=== PATIENT | female | born 1985 | race Caucasian/White ===

== ENCOUNTER 2017-10-07 19:25 | Emergency (ER) | payer OTHER ==
--- NOTE | 2017-10-07 19:30 | PDOC ---
Rapid Medical Evaluation Chief Complaint: Vaginal Bleeding Time Seen by Provider: 10/07/17 19:28 Medical Evaluation: Allergies Allergy/AdvReac Type Severity Reaction Status Date / Time No Known Allergies Allergy Verified 08/19/15 06:12 10/07/17 19:28 I have performed a brief in-person evaluation of this patient. The patient presents with a chief complain of:vag bleed at ~1700hrs today Was seen at the clinic yesterday to obtain preg test. Pt tested Positive LMP 09/01/2017 Pertinent physical exam findings:L/S ctab, ABD NT/ND/ No pain on palp I have ordered the following: cbc,cmp,ua,beta quant,TS,transvaginal US The patient will proceed to the ED for further evaluation.
[2017-10-07 19:32] VITALS: BP 130/73; PULSE 69; TEMP 98.5; BMI 24.9
[2017-10-07 20:13] LABS: BASOPHIL 0.5 % (0-2.0); EOSINOPHIL 0.8 % (0-4.5); MCH 29.2 pg (25.7-33.7); MCHC 34.5 g/dl (32.0-36.0); MEAN CELL VOLUME 84.6 fl (80-96); MEAN PLT VOLUME 8.7 fl (7.5-11.1); NEUTROPHILS 62.1 % (42.8-82.8); PLATELET COUNT 293 K/MM3 (134-434); RDW 12.7 % (11.6-15.6); WHITE BLOOD COUNT 6.9 K/mm3 (4.0-10.0)
[2017-10-07 20:36] LABS: URINE APPEARANCE SLCLOUDY; URINE BILIRUBIN NEGATIVE (NEGATIVE); URINE BLOOD 3+ (NEGATIVE); URINE COLOR YELLOW; URINE GLUCOSE (UA) NEGATIVE (NEGATIVE); URINE KETONE NEGATIVE (NEGATIVE); URINE LEUK ESTERASE NEGATIVE (NEGATIVE); URINE NITRITE NEGATIVE (NEGATIVE); URINE PROTEIN NEGATIVE (NEGATIVE); URINE UROBILINOGEN NEGATIVE mg/dL (0.2-1.0)
[2017-10-07 20:48] LABS: ALBUMIN 3.8 g/dl (3.4-5.0); ANION GAP 4 (8-16); CALCIUM 8.7 mg/dL (8.5-10.1); CO2 29 mmol/L (21-32); CREATININE 0.7 mg/dL (0.55-1.02); GLUCOSE,RANDOM 96 mg/dL (74-106); SGOT/AST 10 U/L (15-37); SGPT/ALT 14 U/L (12-78)
[2017-10-07 20:49] LABS: ALK PHOS 75 U/L (45-117); BILIRUBIN,TOTAL 0.2 mg/dL (0.2-1.0); TOT PROT 7.6 g/dl (6.4-8.2)
--- NOTE | 2017-10-07 22:28 | PDOC ---
History of Present Illness - General Chief Complaint: Vaginal Bleeding Stated Complaint: VAGINAL BLEEDING (5WKS ) Time Seen by Provider: 10/07/17 19:28 - History of Present Illness Initial Comments: 10/07/17 22:52 31 yo LMP 09/01/2017 a who presents with vaginal spotting. Patient reports new confirmed at outside clinic and complains of new onset vaginal spotting this evening at aprox 1700. Denies N/V, fevers/chills, abdominal pain, dysuria, diarrhea/constipation, BPR, back pain, flank pain, hematuria, lightheadedness, chest pain, SOB. Does not follow with Cardroom Supervisor. Past History - Past Medical History Allergies/Adverse Reactions: Allergies Allergy/AdvReac Type Severity Reaction Status Date / Time No Known Allergies Allergy Verified 10/07/17 19:32 Home Medications: Ambulatory Orders Vit/Iron Fumarate/FA [ Tablet] 1 each PO DAILY 02/02/15 Ibuprofen [Motrin -] 400 mg PO QID #28 tablet 08/20/15 Asthma: No Cancer: No Cardiac Disorders: No COPD: No Diabetes: No HTN: No Seizures: No Thyroid Disease: No - Reproductive History (#): 2 Para: 1 - Suicide/Smoking/Psychosocial Hx Smoking History: Never smoked Have you smoked in the past 12 months: No Hx Alcohol Use: No Drug/Substance Use Hx: No Substance Use Type: None Hx Substance Use Treatment: No Review of Systems - Review of Systems Comments:: 10/07/17 22:27 GENERAL/CONSTITUTIONAL: No fever or chills. No weakness. HEAD, EYES, EARS, NOSE AND THROAT: No change in vision. No ear pain or discharge. No sore throat.- CARDIOVASCULAR: No chest pain or shortness of breath RESPIRATORY: No cough, wheezing, or hemoptysis. GASTROINTESTINAL: No nausea, vomiting, diarrhea or constipation. GENITOURINARY: Vaginal bleed. No dysuria, frequency, or change in urination. MUSCULOSKELETAL: No joint or muscle swelling or pain. No neck or back pain. SKIN: No rash NEUROLOGIC: No headache, vertigo, loss of consciousness, or change in strength/ sensation. ENDOCRINE: No increased thirst. No abnormal weight change HEMATOLOGIC/LYMPHATIC: No anemia, easy bleeding, or history of blood clots. ALLERGIC/IMMUNOLOGIC: No hives or skin allergy. *Physical Exam - Vital Signs Last Vital Signs Temp Pulse Resp BP Pulse Ox 98.5 F 69 18 130/73 100 10/07/17 19:26 10/07/17 19:26 10/07/17 19:26 10/07/17 19:26 10/07/17 19:26 - Physical Exam Comments: 10/07/17 22:27 GENERAL: Awake, alert, and fully oriented, in no acute distress HEAD: No signs of trauma, normocephalic, atraumatic EYES: PERRLA, EOMI, sclera anicteric, conjunctiva clear ENT: Hearing grossly normal, nares patent, oropharynx clear without exudates. Moist mucosa NECK: Normal ROM, supple, no lymphadenopathy, JVD, or masses LUNGS: No distress, speaks full sentences, clear to auscultation bilaterally HEART: Regular rate and rhythm, normal S1 and S2, no murmurs, rubs or gallops, peripheral pulses normal and equal bilaterally. ABDOMEN: Soft, nontender, normoactive bowel sounds. No guarding, no rebound. No masses : Rabbler Nirvannie present. Normal appearing external genitalia. Active bleeding within vagina. Cervical os appears to be closed, although slightly diffcult to visualize d/t active bleeding. EXTREMITIES : Normal inspection, Normal range of motion, no edema. No clubbing or cyanosis. SKIN: Warm, Dry, normal turgor, no rashes or lesions noted. ED Treatment Course - LABORATORY CBC & Chemistry Diagram: 10/07/17 19:39 10/07/17 19:39 - ADDITIONAL ORDERS Additional order review: Laboratory Results 10/07/17 10/07/17 10/07/17 19:39 19:39 19:39 Sodium 137 Potassium 4.6 D Chloride 104 Carbon Dioxide 29 D Anion Gap 4 L BUN 12 D Creatinine 0.7 D Creat Clearance w eGFR > 60 Random Glucose 96 Calcium 8.7 Total Bilirubin 0.2 AST 10 L D ALT 14 D Alkaline Phosphatase 75 D Total Protein 7.6 Albumin 3.8 Beta HCG, Quant 47.0 Urine Color Urine Appearance Urine pH Ur Specific Lindstrom Urine Protein Urine Glucose (UA) Urine Ketones Urine Blood Urine Nitrite Urine Bilirubin Urine Urobilinogen Blood Type O POSITIVE Antibody Screen Negative 10/07/17 19:34 Sodium Potassium Chloride Carbon Dioxide Anion Gap BUN Creatinine Creat Clearance w eGFR Random Glucose Calcium Total Bilirubin AST ALT Alkaline Phosphatase Total Protein Albumin Beta HCG, Quant Urine Color Yellow Urine Appearance Slcloudy Urine pH 5.0 D Ur Specific Lindstrom 1.026 Urine Protein Negative Urine Glucose (UA) Negative Urine Ketones Negative Urine Blood 3+ H Urine Nitrite Negative Urine Bilirubin Negative Urine Urobilinogen Negative Blood Type Antibody Screen 10/07/17 19:39 RBC 4.27 MCV 84.6 MCHC 34.5 RDW 12.7 MPV 8.7 Neutrophils % 62.1 D Lymphocytes % 30.1 D Monocytes % 6.5 Eosinophils % 0.8 D Basophils % 0.5 D Medical Decision Making - Medical Decision Making 10/07/17 23:04 31 yo LMP 09/01/2017 a who presents with vaginal spotting. Patient reports new confirmed at outside clinic and complains of new onset vaginal spotting this evening at aprox 1700. Denies trauma to abdomen. Denies N/ V, fevers/chills, abdominal pain, vaginal pain ,dysuria, diarrhea/constipation, BPR, back pain, flank pain, hematuria, lightheadedness, chest pain, SOB. Does not follow with Cardroom Supervisor. Pelvic exam with active bleding in vagina. Cervical os closed. Abdominal exam benign and HDS. Will evaluate for ectopic vs. . ED Course: CBC, CMP, HCG, 10/07/17 23:04 CBC/CMP: Unremarkable HC.0 10/07/17 23:11 Transvaginal U/S: No visible intrauterine gestation. 10/07/17 23:47 Patient advised to come back to ED in two days for repeat BHCG and possibly repeat U/S. *DC/Admit/Observation/Transfer Diagnosis at time of Disposition: Vaginal bleeding affecting early - Discharge Dispostion Disposition: HOME Condition at time of disposition: Stable Admit: No - Referrals - Patient Instructions Printed Discharge Instructions: DI for Vaginal Bleeding During Additional Instructions: Please return to the emergency department with any new or worsening symptoms or concerns. Please return to the emergency department within 48 hours for repeat testing. - Post Discharge Activity - Attestations Physician Attestion: 10/07/17 23:50 I attest to the documentation provided in this note.
[2017-10-07 22:45] LABS: URINE LEUK ESTERASE Negative (NEGATIVE)
[2017-10-07] MEDS ORDERED: ACETAMINOPHEN 500 MG TABLET (FP) PO ONE (23:00)
[2017-10-07] MEDS ORDERED: ACETAMINOPHEN 325 MG TABLET (FP) ONE (23:03)
--- NOTE | 2017-10-08 00:29 | PDOC ---
Attending Attestation - Resident Resident Name: Juan A Taylor - ED Attending Attestation I have performed the following: I have examined & evaluated the patient, The case was reviewed & discussed with the resident, I agree w/resident's findings & plan, Exceptions are as noted - HPI HPI: 10/08/17 00:26 31-year-old female, 3 para 0, at 5 weeks gestation by LMP presents to the ER with mild vaginal spotting. Patient denies fever/chills/nausea/vomiting/ dysuria. - Physicial Exam PE: 10/08/17 00:27 Patient is awake and alert, afebrile, hemodynamically stable. sft, nd, nt rrr cta No external lesions, small amount of bleeding noted in the vaginal vault, os closed: as per Dr. Taylor - Medical Decision Making 10/08/17 00:28 Patient is a 31-year-old female, who presents to the ER with vaginal bleeding. Beta-hCG is noted to be 47. It is significantly below the threshold limit. Transvaginal sound shows thickened endometrium only. Differential diagnoses includes early IUP versus ectopic versus threatened AB. We'll advise patient to return in 48 hours for repeat beta-hCG. Will provide ectopic precautions. Will discharge.
== END 2017-10-08 00:07 | disposition home or self-care (01) ==
LOC: JER 19:25
DX: O26.891 Other specified pregnancy related conditions, first trimester (principal); Z3A.01 Less than 8 weeks gestation of pregnancy; N93.9 Abnormal uterine and vaginal bleeding, unspecified
CPT/HCPCS: 36415; 76817-TC; 80053; 81003; 81015; 84702; 85025; 86850; 86900; 86901; 99282-25

== ENCOUNTER 2017-10-20 20:36 | Emergency (ER) | payer OTHER ==
[2017-10-20 20:40] VITALS: TEMP 97.9; BMI 24.0
--- NOTE | 2017-10-20 20:42 | PDOC ---
Rapid Medical Evaluation Chief Complaint: Vaginal Bleeding Time Seen by Provider: 10/20/17 20:41 Medical Evaluation: Allergies Allergy/AdvReac Type Severity Reaction Status Date / Time No Known Allergies Allergy Verified 10/20/17 20:40 Vital Signs Temp Pulse Resp BP Pulse Ox 97.9 F 88 16 140/78 100 10/20/17 20:38 10/20/17 20:38 10/20/17 20:38 10/20/17 20:38 10/20/17 20:38 10/20/17 20:41 I have performed a brief in-person evaluation of this patient. The patient presents with a chief complaint of: Abdominal Pain w/ Vaginal bleeding. Pertinent physical exam findings: Lower abdominal pain I have ordered the following: cbc, cmp, type screen, Beta- HCG, Urinalysis, Trans vaginal US The patient will proceed to the ED for further evaluation.
[2017-10-20 21:18] LABS: BASO % 0.5 % (0-2.0); EOS # 0.1 # (0-4.5); EOS % 1.1 % (0-4.5); LYMPH # 2.2 (8-40); MCH 28.5 pg (25.7-33.7); MCHC 33.8 g/dl (32.0-36.0); MEAN CELL VOLUME 84.4 fl (80-96); MEAN PLT VOLUME 9.2 fl (7.5-11.1); MONO # 0.4 # (3.8-10.2); NEUT # 3.6 # (42.8-82.8); NEUT % 57.2 % (42.8-82.8); PLATELET COUNT 267 K/MM3 (134-434); RDW 12.4 % (11.6-15.6); WHITE BLOOD COUNT 6.3 K/mm3 (4.0-10.0)
[2017-10-20 21:52] LABS: URINE APPEARANCE CLEAR; URINE BILIRUBIN NEGATIVE (NEGATIVE); URINE BLOOD 1+ (NEGATIVE); URINE COLOR YELLOW; URINE GLUCOSE (UA) NEGATIVE (NEGATIVE); URINE KETONE NEGATIVE (NEGATIVE); URINE LEUK ESTERASE NEGATIVE (NEGATIVE); URINE NITRITE NEGATIVE (NEGATIVE); URINE PROTEIN NEGATIVE (NEGATIVE); URINE UROBILINOGEN NEGATIVE mg/dL (0.2-1.0)
[2017-10-20 21:57] LABS: URINE MUCUS RARE; URINE RBC 3 /hpf (0-3); URINE WBC 1 /hpf (3-5)
[2017-10-20 22:06] LABS: ALBUMIN 3.7 g/dl (3.4-5.0); ANION GAP 5 (8-16); BILIRUBIN,TOTAL 0.2 mg/dL (0.2-1.0); CALCIUM 8.6 mg/dL (8.5-10.1); CO2 30 mmol/L (21-32); CREATININE 0.6 mg/dL (0.55-1.02); GLUCOSE,RANDOM 86 mg/dL (74-106); SGOT/AST 14 U/L (15-37); SGPT/ALT 18 U/L (12-78)
[2017-10-20 22:09] LABS: ALK PHOS 74 U/L (45-117)
--- NOTE | 2017-10-20 23:24 | PDOC ---
Attending Attestation - HPI HPI: 10/20/17 23:42 The patient is a 31 year old female with a past medical history of complaining of abdominal pain and vaginal bleeding. She states that she saw her OBGYN one week ago (10/13/17) and her beta HCG was 89.6. Her OBGYN informed her that her was unlikely viable and that she should come to the ED if she experienced any vaginal bleeding. LMP 09/06/17. <Brain Doyle - Last Filed: 10/21/17 00:15> - Resident Resident Name: Derek Lindsay - ED Attending Attestation I have performed the following: I have examined & evaluated the patient, The case was reviewed & discussed with the resident, I agree w/resident's findings & plan, Exceptions are as noted - Physicial Exam PE: 10/25/17 19:21 *Physical Exam General Appearance: Yes: Appropriately Dressed. No: Apparent Distress, Intoxicated HEENT: positive: EOMI, HARLEY, Normal ENT Inspection, Normal Voice, TMs Normal, Pharynx Normal. negative: Pale Conjunctivae, Photophobia, Scleral Icterus (R), Scleral Icterus (L) Neck: positive: Trachea midline, Normal Thyroid, Supple. negative: Tender, Rigid, Carotid bruit, Stridor, Lymphadenopathy (R), Lymphadenopathy (L), Thyromegaly Respiratory/Chest: positive: Lungs Clear, Normal Breath Sounds. negative: Chest Tender, Respiratory Distress, Accessory Muscle Use, Labored Respiration, RES, Crackles, Rales, Rhonchi, Stridor, Wheezing, Dullness Cardiovascular: positive: Regular Rhythm, Regular Rate, S1, S2. negative: Edema , JVD, Murmur, Bradycardia, Tachycardia Vascular Pulses: Dorsalis-Pedis (R): 2+, Doralis-Pedis (L): 2+ Gastrointestinal/Abdominal: positive: Normal Bowel Sounds, Flat, Soft. negative : Tender, Organomegaly, Pulsatile Mass, Increased Bowel Sounds, Decreased BS, Distended, Guarding, Rebound, Hernia, Hepatomegaly, Spleenomegaly Lymphatic: negative: Adenopathy, Tenderness Musculoskeletal: positive: Normal Inspection. negative: CVA Tenderness, Decreased Range of Motion Extremity: positive: Normal Capillary Refill, Normal Inspection, Normal Range of Motion, Pelvis Stable. negative: Tender, Pedal Edema, Swelling, Erythema Integumentary: positive: Normal Color, Dry, Warm. 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 negative: EOM Palsy, Facial Droop, Sensory Deficit - Medical Decision Making 10/25/17 19:22 patient was treated and released <Raul Redding - Last Filed: 10/25/17 19:22>
[2017-10-20 23:43] LABS: URINE LEUK ESTERASE Negative (NEGATIVE)
--- NOTE | 2017-10-21 00:22 | PDOC ---
History of Present Illness - General Chief Complaint: Vaginal Bleeding Stated Complaint: 7 WEEKS PREG,VAG. BLEEDING Time Seen by Provider: 10/20/17 20:41 History Source: Patient Exam Limitations: No Limitations - History of Present Illness Initial Comments: 10/21/17 00:15 31 yo LMP 09/06/2017 a 6w3d who presents with mild abdominal pain and vaginal spotting. Patient reports potentially nonviable pregnancies based on slow-increasing beta-HCG levels done at outside clinic on October 10 (54.7) and October 13 (84.6) Denies N/V, fevers/chills, abdominal pain, vaginal pain ,dysuria, diarrhea/ constipation, BPR, back pain, flank pain, hematuria, lightheadedness, chest pain , SOB. Past History - Past Medical History Allergies/Adverse Reactions: Allergies Allergy/AdvReac Type Severity Reaction Status Date / Time No Known Allergies Allergy Verified 10/20/17 20:40 Home Medications: Ambulatory Orders Vit/Iron Fum/Folic AC [ Tablet] 1 each PO DAILY 02/02/15 Asthma: No Cancer: No Cardiac Disorders: No COPD: No Diabetes: No HTN: No Seizures: No Thyroid Disease: No Other medical history: DENIES MEDICAL HX - Reproductive History (#): 2 Para: 1 - Suicide/Smoking/Psychosocial Hx Smoking History: Never smoked Have you smoked in the past 12 months: No Hx Alcohol Use: No Drug/Substance Use Hx: No Substance Use Type: None Hx Substance Use Treatment: No Review of Systems - Review of Systems Constitutional: No: Symptoms Reported HEENTM: No: Symptoms Reported Respiratory: No: Symptoms reported Cardiac (ROS): No: Symptoms Reported ABD/GI: Yes: See HPI : No: Symptoms Reported Musculoskeletal: No: Symptoms Reported Integumentary: No: Symptoms Reported Neurological: No: Symptoms reported *Physical Exam - Vital Signs Last Vital Signs Temp Pulse Resp BP Pulse Ox 97.9 F 88 16 140/78 100 10/20/17 20:38 10/20/17 20:38 10/20/17 20:38 10/20/17 20:38 10/20/17 20:38 - Physical Exam General Appearance: Yes: Nourished, Appropriately Dressed. No: Apparent Distress HEENT: positive: EOMI, HARLEY, Normal ENT Inspection Neck: negative: Tender Respiratory/Chest: positive: Chest Tender, Lungs Clear, Normal Breath Sounds Cardiovascular: positive: Regular Rhythm, Regular Rate, S1, S2 Gastrointestinal/Abdominal: positive: Normal Bowel Sounds, Flat, Soft. 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, Fully Oriented, Alert, Normal Mood/ Affect, Normal Response, Motor Strength 03/04 ED Treatment Course - LABORATORY CBC & Chemistry Diagram: 10/20/17 20:48 10/20/17 20:48 - ADDITIONAL ORDERS Additional order review: Laboratory Results 10/20/17 10/20/17 20:48 20:48 Sodium 141 Potassium 3.9 Chloride 106 Carbon Dioxide 30 Anion Gap 5 L BUN 12 Creatinine 0.6 Creat Clearance w eGFR > 60 Random Glucose 86 Calcium 8.6 Total Bilirubin 0.2 AST 14 L D ALT 18 D Alkaline Phosphatase 74 Total Protein 7.0 Albumin 3.7 Beta HCG, Quant 81.6 Urine Color Yellow Urine Appearance Clear Urine pH 6.0 Ur Specific [place]att 1.020 Urine Protein Negative Urine Glucose (UA) Negative Urine Ketones Negative Urine Blood 1+ H Urine Nitrite Negative Urine Bilirubin Negative Urine Urobilinogen Negative Ur Leukocyte Esterase Negative Urine WBC (Auto) 1 Urine RBC (Auto) 3 Ur Epithelial Cells Rare Urine Mucus Rare 10/20/17 20:48 RBC 4.14 MCV 84.4 MCHC 33.8 RDW 12.4 MPV 9.2 Neutrophils % 57.2 Lymphocytes % 34.3 Monocytes % 6.9 Eosinophils % 1.1 Basophils % 0.5 Medical Decision Making - Medical Decision Making 10/21/17 01:51 31 yo LMP 09/06/2017 a 6w3d who presents with mild abdominal pain and vaginal spotting. TVUS: No intrauterine gestational sac identified. Please correlate clinically for recent miscarriage. Cannot exclude a nonvisualized ectopic . Continued close clinical follow-up is warranted. 10/21/17 01:51 CBC, CMP, UA all WNL Beta HC.6. Lower number than on october 13. This is likely a complete . Patient dicharged with obgyn follow up. *DC/Admit/Observation/Transfer Diagnosis at time of Disposition: Complete - Discharge Dispostion Disposition: HOME Condition at time of disposition: Fair Admit: No - Referrals Referrals: Munir Carpio MD [Primary Care Provider] - - Patient Instructions Printed Discharge Instructions: Dealing With Miscarriage, DI for Miscarriage Additional Instructions: Please follow up with OBGYN KAYLEY Please come back to Emergency Department for any new, worsening or concerning symptoms. - Post Discharge Activity
[2017-10-21 01:17] VITALS: BP 120/74; PULSE 76
== END 2017-10-21 01:15 | disposition home or self-care (01) ==
LOC: JER 20:36
DX: O03.9 Complete or unspecified spontaneous abortion without complication (principal); Z3A.01 Less than 8 weeks gestation of pregnancy
CPT/HCPCS: 36415; 76817-TC; 80053; 81003; 81015; 84702; 85025; 86850; 86900; 86901; 99281-25

== ENCOUNTER 2018-03-01 18:15 | Emergency (ER) | payer OTHER ==
--- NOTE | 2018-03-01 18:16 | PDOC ---
Rapid Medical Evaluation Time Seen by Provider: 03/01/18 18:16 Medical Evaluation: Allergies Allergy/AdvReac Type Severity Reaction Status Date / Time No Known Allergies Allergy Verified 10/20/17 20:40 03/01/18 18:16 Healthy 32 year old female presents with who had HIV test at outside hospital last week which returned positive. Family believe results were in error and would like to repeat testing. Feeling well, no complaints. -HIV testing -To FT for further evaluation
[2018-03-01 18:21] VITALS: BP 126/81; PULSE 88; TEMP 98.1; BMI 24.9
--- NOTE | 2018-03-01 19:14 | PDOC ---
History of Present Illness - General Chief Complaint: HIV Testing Stated Complaint: STD EVALUATION Time Seen by Provider: 03/01/18 18:16 - History of Present Illness Initial Comments: 03/01/18 19:12 CHIEF COMPLAINT: HIV testing HISTORY OF PRESENT ILLNESS: 32 yo F with no PMH presents to fast track requesting HIV test. Patient's was recently called by outside hospital with positive HIV results, but patient reports that she also saw her doctor last week and had a negative HIV test. Patient and both request HIV testing to confirm results. Patient and both report that they are completely asymptomatic. PAST MEDICAL HISTORY: Denies past medical history FAMILY HISTORY: Denies SOCIAL HISTORY: Denies tobacco, alcohol, illicit drug use. SURGICAL HISTORY: Denies ALLERGIES: No known drug allergies REVIEW OF SYSTEMS negative - see HPI PHYSICAL EXAM General Appearance: Well-appearing, appropriately dressed. No apparent distress. HEENT: EOMI, PERRLA. No conjunctival pallor. No photophobia, scleral icterus. Respiratory/Chest: Lungs CTAB. Cardiovascular: RRR. S1, S2. Gastrointestinal/Abdominal: Normal bowel sounds. Abdomen soft, non-distended. No tenderness or rebound tenderness. No organomegaly, pulsatile mass, guarding , hernia, hepatomegaly, splenomegaly. Musculoskeletal/Extremities: Normal inspection. FROM of all extremities, normal capillary refill. Pelvis Stable. No CVA tenderness. No tenderness to extremities, pedal edema, swelling, erythema or deformity. Integumentary: Appropriate color, dry, warm. 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 Fully oriented, alert. Appropriate mood/affect. Motor strength 5/5. No appreciable EOM palsy, facial droop or sensory deficit. Past History - Past Medical History Allergies/Adverse Reactions: Allergies Allergy/AdvReac Type Severity Reaction Status Date / Time No Known Allergies Allergy Verified 03/01/18 18:17 Home Medications: Ambulatory Orders NK [No Known Home Medication] 03/01/18 Asthma: No Cancer: No Cardiac Disorders: No COPD: No Diabetes: No HTN: No Seizures: No Thyroid Disease: No - Reproductive History (#): 2 Para: 1 - Suicide/Smoking/Psychosocial Hx Smoking History: Never smoked Have you smoked in the past 12 months: No Information on smoking cessation initiated: No Hx Alcohol Use: No Drug/Substance Use Hx: No Substance Use Type: None Hx Substance Use Treatment: No *Physical Exam - Vital Signs Last Vital Signs Temp Pulse Resp BP Pulse Ox 98.1 F 88 14 126/81 100 03/01/18 18:17 03/01/18 18:17 03/01/18 18:17 03/01/18 18:17 03/01/18 18:17 Medical Decision Making - Medical Decision Making 03/01/18 19:14 32 yo F with no PMH presents to fast track requesting HIV test. -HIV HIV P24 antigen reactive. Discussed results in detail with patient. Explained to patient that HIV can be managed with medications and that they must follow up with the [facility] for treatment initiation. Provided multiple resources for newly diagnosed HIV patients. Appointment scheduled for 03/03/18. Patient verbalized understanding and agrees to go to appointment. *DC/Admit/Observation/Transfer Diagnosis at time of Disposition: HIV p24 antigen positive - Discharge Dispostion Disposition: HOME Condition at time of disposition: Stable Admit: No - Referrals Referrals: [facility] Providers [Provider Group] - Patient Instructions Printed Discharge Instructions: DI for HIV Additional Instructions: As discussed, you must follow up at the [facility] for treatment and counseling regarding your HIV status. If you develop any fever, vomiting, diarrhea, chills, sore throat, or any concerning symptoms, please return to the ER. Print Language: SWEDISH - Post Discharge Activity Forms/Work/School Notes: HIV F/U Fri am [facility]
== END 2018-03-01 22:32 | disposition home or self-care (01) ==
LOC: JERFT 18:15 → JER 18:15 → JERFT 22:32
DX: B20 Human immunodeficiency virus [HIV] disease (principal)
CPT/HCPCS: 36415; 84703; 87389; 99281-25

== ENCOUNTER 2018-07-13 13:15 | Day surgery (SDC) | payer OTHER ==
[2018-07-11 14:25] VITALS: BMI 24.0
[2018-07-13] MEDS ORDERED: oxyCODONE HCL 5 MG TABLET PO PRN (15:10)
[2018-07-13] MEDS ORDERED: IBUPROFEN 600 MG TABLET (FP) PO PRN (15:10)
[2018-07-13] MEDS ORDERED: ONDANSETRON 4 MG/2 ML VIAL IVPUSH PRN ×2 (15:10→15:51)
[2018-07-13] MEDS ORDERED: IBUPROFEN 800 MG/8 ML IJ IVPB PRN (15:10)
--- NOTE | 2018-07-13 15:10 | HP ---
Past Medical History - Primary Care Physician PCP:: Munir Carpio - Admission Chief Complaint: high grade JACIEL History of Present Illness: 32 yo f with hx of HGSILfor leep cone, risks discussed ,risks of cervical incompetency, bleeding, infection,, injury to surrounding tissue, infertility, cervical stenosis discussed , agrred to have procedure, no tx and ulternatives explained History Source: Patient Limitations to Obtaining History: No Limitations - Past Medical History ...: 2 ...Para: 2 - Past Surgical History Hx Myomectomy: No Hx Transabdominal Cerclage: No - Smoking History Smoking history: Never smoked Have you smoked in the past 12 months: No - Alcohol/Substance Use Hx Alcohol Use: No - Social History History of Recent Travel: No Home Medications - Allergies Allergies/Adverse Reactions: Allergies Allergy/AdvReac Type Severity Reaction Status Date / Time No Known Allergies Allergy Verified 07/11/18 14:25 - Home Medications Home Medications: Ambulatory Orders NK [No Known Home Medication] 03/01/18 Review of Systems - Review of Systems Constitutional: reports: No Symptoms Eyes: reports: No Symptoms HENT: reports: No Symptoms Neck: reports: No Symptoms Cardiovascular: reports: No Symptoms Respiratory: reports: No Symptoms Gastrointestinal: reports: No Symptoms Genitourinary: reports: No Symptoms, Testicular Pain Breasts: reports: No Symptoms Reported Musculoskeletal: reports: No Symptoms Integumentary: reports: No Symptoms Neurological: reports: No Symptoms Endocrine: reports: No Symptoms Hematology/Lymphatic: reports: No Symptoms Psychiatric: reports: No Symptoms 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 Signs: Vital Signs Temperature 98.2 F 07/13/18 13:22 Pulse Rate 90 07/13/18 13:22 Respiratory Rate 20 07/13/18 13:22 Blood Pressure 117/66 07/13/18 13:22 O2 Sat by Pulse Oximetry (%) 100 07/13/18 13:22 Constitutional: Yes: Well Nourished, No Distress, Calm Eyes: Yes: WNL, Conjunctiva Clear, EOM Intact HENT: Yes: WNL, Atraumatic, Normocephalic Neck: Yes: WNL, Supple, Trachea Midline Cardiovascular: Yes: WNL, Regular Rate and Rhythm Respiratory: Yes: WNL, Regular, CTA Bilaterally Gastrointestinal: Yes: WNL ...Rectal Exam: Yes: WNL Renal/: Yes: WNL External Genitalia: Yes: Normal Vaginal Exam: Yes: Normal Cervix: Yes: Normal Uterus: Yes: Normal Adnexa: Not Palpable: Left, Right Breast(s): Yes: WNL Musculoskeletal: Yes: WNL Extremities: Yes: WNL Edema: No Integumentary: Yes: WNL Neurological: Yes: WNL, Alert, Oriented ...Motor Strength: WNL Psychiatric: Yes: WNL, Alert, Oriented Problem List - Problem (1) 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
[2018-07-13] MEDS ORDERED: ELECTROLYTE-148 SOLN 1,000 ML IV SCH (15:15)
[2018-07-13] MEDS ORDERED: ACETIC ACID 500 ML BOTTLE NR ONE (15:40)
[2018-07-13] MEDS ORDERED: IODINE/POTASSIUM IODIDE 5%/10% 14 ML BOTTLE NR ONE (15:40)
[2018-07-13] MEDS ORDERED: LACTATED RINGERS SOLUTION 1,000 ML IV SCH (16:00)
[2018-07-13 17:14] VITALS: PULSE 89; TEMP 98.3
[2018-07-13 17:44] VITALS: BP 132/82
--- NOTE | 2018-07-18 11:07 | PATH ---
Surgical Pathology Report Patient Name: QUIN VALENTIN [facility]. Rec. #: [id number] /Age/Gender: 1985 (Age: 32) / F Account: [id number] Location: [facility] SURGICAL Taken: 07/13/2018 Received: 07/14/2018 Reported: 07/18/2018 Physicians: Munir Carpio M.D. Specimen(s) Received A: CERVICAL CONE LEEP BX B: ENDOCERVICAL CURETTINGS Clinical History Hydrocele, abnormal Pap Final Diagnosis A. LEEP CERVICAL CONE, BIOPSY: LAURA 3 (CERVICAL INTRAEPITHELIAL NEOPLASIA, GRADE 3) WITH GLANDULAR INVOLVEMENT. LAURA 1 PRESENT AT THE CAUTERIZED MARGIN. THE MARGIN IS NEGATIVE FOR HIGH GRADE DYSPLASIA. B. ENDOCERVICAL CURETTINGS: FEW FRAGMENTS OF DETACHED SQUAMOUS EPITHELIUM WITH LAURA 1. SEPARATE FRAGMENTS OF ENDOCERVICAL TISSUE WITH NO DIAGNOSTIC ABNORMALITIES. Intradepartmental case review with consensus on diagnosis. This case was discussed with Dr. Carpio on 07/18/2018. Electronically Signed Margie Tolbert M.D. Gross Description A. Received in formalin labeled "LEEP cervical cone biopsy," are 2 unoriented portions of soft tissue measuring 1.5 x 0.5 x 0.2 cm and 2.1 x 1.0 x 0.5 cm, consistent with portions of cervix. The specimens are partially surfaced by a davidson mucosa. The specimens are inked blue and serially sectioned. The specimen is entirely submitted in 3 cassettes as follows: 1-2-larger portion of tissue; 3-smaller portion of tissue. B. Received in formalin labeled "endocervical curetting," is a 2.0 x 1.5 x 0.3 cm aggregate of davidson-brown soft tissue fragments admixed with blood-tinged mucous. The formalin is filtered and the specimen is entirely submitted in one cassette. 07/14/201807/14/2018
--- NOTE | 2018-08-03 19:24 | OP ---
DATE OF OPERATION: 07/18/2018 PREOPERATIVE DIAGNOSIS: High grade cervical dysplasia. POSTOPERATIVE DIAGNOSIS: High grade cervical dysplasia. PROCEDURE: Loop electrosurgical excision procedure cone biopsy and endocervical curettage. SURGEON: Munir Carpio M.D. ANESTHESIA: General. ESTIMATED BLOOD LOSS: 25 mL. OPERATION: Patient was taken to operating room with adequate general anesthesia in dorsal lithotomy position. Examination under anesthesia revealed external genitalia to be normal. Vagina was normal. Cervix was clean, no gross lesion. Uterus normal size. Adnexa no masses palpable. Then glass speculum was inserted. The cervical area was visualized and the cervical area was saturated with and then Lugol was applied to the cervix. An area of LAURA was visualized, and with a large LEEP cone biopsy was done and area of LAURA was excised in its entirety, and then the ECC was done and the bleeding area was cauterized with ball cautery, and patient tolerated procedure well, left the OR in good condition. MUNIR CARPIO M.D. [id number]
== END 2018-07-13 17:40 | disposition home or self-care (01) ==
LOC: JASU-SURG 13:15
PROVIDERS: ATTEND Obstetrics & Gynecology
PROC: 0UBC7ZX Excision of Cervix, Via Natural or Artificial Opening, Diagnostic (ICD-10-PCS; principal; 2018-07-13 14:30)
DX: D06.0 Carcinoma in situ of endocervix (principal)
CPT/HCPCS: 88305-TC; 88307-TC; 94760